=== PATIENT | male | born 1945 | race Caucasian/White ===

== ENCOUNTER 2018-09-18 05:29 | Inpatient (IN) | payer OTHER, BC ==
[2018-09-11 12:51] LABS: HEMATOCRIT 46.1 % (42.0-52.0); HEMOGLOBIN 15.3 gm/dL (14.0-18.0); MCHC 33.2 g/dL (28.0-37.0); MCV 96.4 fL (80.0-100.0); RBC 4.78 mil/uL (4.50-6.00); RDW 13.1 % (10.5-14.5); WBC 8.1 thou/uL (4.0-11.0)
[2018-09-11 13:01] LABS: ALBUMIN 4.3 g/dL (3.4-5.0); CALCIUM 9.4 mg/dL (8.5-10.1); CREATININE 0.8 mg/dL (0.7-1.3); POTASSIUM 4.1 mmol/L (3.5-5.1)
[2018-09-11 13:11] LABS: PROTIME 10.5 Seconds (9.3-11.4)
[2018-09-11 13:45] LABS: URINE BILIRUBIN NEGATIVE (Negative); URINE BLOOD NEGATIVE (Negative); URINE CLARITY CLEAR; URINE COLOR YELLOW; URINE GLUCOSE-RANDOM* NEGATIVE (Negative); URINE KETONES NEGATIVE (Negative); URINE LEUKOCYTES-REFLEX NEGATIVE (Negative); URINE NITRITE-REFLEX NEGATIVE (Negative); URINE PROTEIN (DIPSTICK) NEGATIVE (Negative); URINE UROBILINOGEN 0.2 E.U./dl (0.2-1.0)
[~2018-09-18] VITALS: Ht 172.7 cm; Wt 83.0 kg
--- NOTE | ~2018-09-18 | D ---
[facility] [place] [address] [place] [address] DISCHARGE SUMMARY Name: KRISTY MARTINEZ Room #: 422-P [facility] IN M.R.#: [id number] Admission: 09/18/18 Attend Phys: Alessandro Hernandez MD Discharge: Date of : 49 Report #: [id number] THIS REPORT FOR: //name// CC: Alessandro Ruth DATE OF SERVICE: 09/19/2018 PLANNED DISCHARGE DATE: 09/20/2017 FINAL DIAGNOSIS: End-stage degenerative osteoarthritis, right knee. OPERATIONS AND PROCEDURES: Right total knee arthroplasty. HISTORY OF PRESENT ILLNESS: This active, fit 72-year-old gentleman complains of progressive right knee pain. Clinical exam and x-rays confirmed rather severe end-stage degenerative osteoarthritis. He was elected to go ahead with total knee replacement. HOSPITAL COURSE: The patient was admitted and taken to the Operating Room on 09/18/2018. He underwent right total knee replacement, which he tolerated well. Postoperatively, his course had been largely unremarkable. The dressing was dry. Hemovac output was limited. The drain has been removed. He has advanced from oral IV analgesics to oral analgesics. He is participating with physical therapy and making good progress. He feels sufficiently safe and independent, that he anticipates he will be able to go home with limited family assistance in 1 or 2 days. Therefore, he is requesting plans for discharge on 09/20/2018. I have noted that if he is not yet fully safe and independent, we will need to keep him for one more day, but would anticipate discharge home with some limited family assistance on either 09/20/2018 or 09/21/2018. DISCHARGE MEDICATIONS: Include aspirin 81 mg daily, Flomax 0.4 mg daily, Zocor 40 mg daily, multivitamins once daily, Xarelto 10 mg daily, hydrocodone 10 mg q. 6 hours p.r.n. for pain. He will continue a gentle independent exercise program gradually advancing as comfort allows. He will begin outpatient therapy next week. I have asked him to call me if any problems or questions and we should otherwise see him in my office in 1 week for routine followup and then in 2 weeks for suture removal. By: [id number] Alessandro Hernandez MD /nt
[~2018-09-18 05:29] MED LIST: ASPIR 8181 MG PO; CENTRUM SILVER1 EAC2 PO; FLOMAX0.4 MG PO; LUTEIN20 M1 PO; MAGOX 400400 MG PO; MOBIC15 MG PO; SIMVASTATIN40 MG PO; VITAMIN B-1100 M2 PO; VITAMIN B-12500 MCG PO; VITAMIN E400 UNIT PO; VITAMINC500 PO
[2018-09-18 07:42] VITALS: BP 138/79
[2018-09-18 13:11] VITALS: BP 134/73
--- NOTE | 2018-09-18 13:21 | NUR ---
ASSESSMENT-PT LIVES AT HOME WITH HIS . THEY HAVE A SON AND DIL IN [place]. PT HAS BEEN WALKING ON HIS OWN AND DOES HIS OWN ADLS. PT HAS A 2 WHEELED ROLLER WALKER AT HOME ALREADY. 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 PT SAYS HE WISHES TO USE [facility] FOR HH SERVICES AND WILL HAVE THEM FOR 1 WEEK THEN GO TO [facility]. FOLLOWING TO ASSIST WITH DC PLANNING.
[2018-09-18 13:30] VITALS: BP 115/74
[2018-09-18 14:00] VITALS: BP 81/52
[2018-09-18 14:48] VITALS: BP 116/76
[2018-09-18 19:44] VITALS: BP 123/89
--- NOTE | 2018-09-19 03:31 | NUR ---
Assumed care of pt at 1900. Pt alert and oriented x4. Dressing on rt knee clean and intact. Hemovac drain in place. Pain controlled with prn pain meds. Good urine output. Pt calls appropriately. Will continue to monitor and assist with needs.
[2018-09-19 04:17] VITALS: BP 114/76
[2018-09-19 05:31] LABS: HEMATOCRIT 34.7 % (42.0-52.0); HEMOGLOBIN 11.5 gm/dL (14.0-18.0); MCH 31.9 pg (26.0-34.0); MCV 96.8 fL (80.0-100.0); RBC 3.59 mil/uL (4.50-6.00); RDW 13.3 % (10.5-14.5); WBC 15.5 thou/uL (4.0-11.0)
[2018-09-19 08:00] VITALS: BP 114/76
--- NOTE | 2018-09-19 08:54 | O ---
[facility] [place] [address] [place] [address] OPERATIVE REPORT Name: KRISTY MARTINEZ Room #: 422-P ADM IN M.R.#: [id number] Admission: 09/18/18 Attend Phys: Alessandro Hernandez MD Discharge: Date of : 49 Report #: [id number] THIS REPORT FOR: //name// CC: Alessandro Ruth DATE OF SERVICE: 09/18/2018 PREOPERATIVE DIAGNOSIS: End-stage degenerative osteoarthritis, right knee. POSTOPERATIVE DIAGNOSIS: End-stage degenerative osteoarthritis, right knee. PROCEDURE: Right total knee arthroplasty. SURGEON: Alessandro Hernandez MD INDICATIONS: This 72-year-old gentleman presents with progressive right knee pain. He has tried conservative measure without benefit. Clinical exam and x-rays confirm rather severe degenerative osteoarthritis. We have discussed treatment options and he has elected to go ahead with right total knee arthroplasty. DESCRIPTION OF PROCEDURE: The patient was taken to the operating room where he was placed under general anesthesia. Prophylactic intravenous antibiotics were administered. The right knee and leg were meticulously prepped and draped. A thigh tourniquet was applied and inflated to 300 mmHg. An anterior longitudinal skin incision was made and carried through the medial retinaculum. The patella was reflected laterally. Moderately severe degenerative change in all 3 compartments was noted. The Maier and Nephew knee system was utilized. Intramedullary guides were used on both the femur and the tibia. The femur was cut in 5 degrees of valgus and the tibia cut perpendicular to the long axis of bone. A size 6 femoral component fit nicely and a size 6 tibial component also fit nicely. The patellar surface was resected and a 38-mm patellar button fit nicely with appropriate anchor holes. A trial reduction was performed and the knee seemed best suited for an 11 mm polyethylene insert. This resulted in full knee extension, flexion beyond 130 degrees and good stability with varus and valgus stress. The patellar tracks nicely and seems stable. The trial components were removed. The intramedullary canal was blocked with a bone block on both the femoral and tibial sides. The surfaces were thoroughly irrigated and dried. Methyl methacrylate cement was mixed and injected into the porous surface of the proximal tibia. The Maier and Nephew size 6 Julisa II right tibial base plate was then inserted. This was impacted into position. It seated nicely and appeared to be secure. Excess cement was removed around its margin. A #11 mm polyethylene insert was snapped into place. It seated nicely and appeared to be secure. The press-fit noncemented size 6 cruciate retaining Legion femoral component was impacted on the distal femur. It seated nicely and [facility] [address] [place] [address] OPERATIVE REPORT Name: KRISTY MARTINEZ Room #: 422-P [facility] IN ..#: [id number] Admission: 09/18/18 Attend Phys: Alessandro Hernandez MD Discharge: Date of : 49 Report #: [id number] appeared to be secure. The patellar component was cemented into place using cement and appropriate anchor holes. Excess cement was removed from around its margin. Once the cement had hardened, range of motion, alignment, and stability were once again assessed and felt to be satisfactory. The patellar tracks nicely and seems stable. A single Hemovac was left in the wound, exiting through a separate stab incision. At this point, the tourniquet was deflated after a total tourniquet time of approximately 50 minutes. The wound was copiously irrigated. Good hemostasis was established. The fascia was closed with multiple #1 Vicryl sutures. The subcutaneous tissues were closed with 0 Monocryl. The skin was closed with skin shanique. A sterile dressing was applied. The patient was awakened and returned to recovery room in good condition. <ELECTRONICALLY SIGNED> By: Alessandro Hernandez MD 09/19/18 [id number] Alessandro Hernandez MD /nt
[2018-09-19 10:30] VITALS: BP 123/83
[2018-09-19 19:51] VITALS: BP 133/56
--- NOTE | 2018-09-20 03:15 | NUR ---
PATIENT ALERT AND ORIENTED X4. VERY ANXIOUS AT SHIFT CHANGE, WANTED THIS NURSE TO CALL THE DOCTOR FOR A TEMP OF 99.2. PATIENT WAS INSTRUCTED TO USE HIS SPIROMETER, DRINK WATER AND TAKE TYLENOL. MONITORED THROUGHOUT THE NIGHT. NO RESULTS FROM AM MOM GIVEN. MEDICATED FOR PAIN X2 AT TIME OF NOTE. WILL MONITOR.
[2018-09-20 06:47] LABS: HEMOGLOBIN 10.9 gm/dL (14.0-18.0); MCH 32.2 pg (26.0-34.0); MCHC 33.1 g/dL (28.0-37.0); MCV 97.4 fL (80.0-100.0); RBC 3.38 mil/uL (4.50-6.00); RDW 13.2 % (10.5-14.5)
--- NOTE | 2018-09-20 06:55 | NUR ---
PATIENTS TEMP THIS AM IS 98.8
[2018-09-20 07:50] VITALS: BP 116/75
[2018-09-20 19:29] VITALS: BP 111/59
--- NOTE | 2018-09-20 19:48 | NUR ---
ASSUMED CARE OF PATIENT AT 0715, PATIENT ALERT AND ORIENTED X 4. PATIENT UP WITH ASSIST X 1 WITH WALKER. PATIENT C/O PAIN WITH RIGHT KNEE, PATIENT RECEIVED OXYCODONE X 2 THIS SHIFT. PATIENT WORKED WITH PHYSICAL THERAPY X 2 THIS SHIFT. PATIENT HAS BEEN UP IN THE RECLINER MOST OF THE DAY. PATIENT HAS RIGHT HAND IV IN PLACE, FLUSHED WITH NS AND REMAINS PATENT. PATIENT HAS LIYA DRESSING TO RIGHT KNEE, C/D/I. PATIENT STATES PAIN LEVEL IMPROVE TODAY. WILL CONTINUE MONITOR.
--- NOTE | 2018-09-21 03:27 | NUR ---
PATIENT ALERT AND ORIENTED X4. UP WITH WALKER FROM BED TO CHAIR INDEPENDENTLY. COOPERATIVE WITH CARE. MEDICATED FOR PAIN PRN WITH GOOD RESULTS. DRESSING DRY AND INTACT. NO BM AT TIME OF NOTE. USING ICE PACK FOR COMFORT. RESTING QUIETLY. WILL MONIOR.
[2018-09-21 07:04] LABS: HEMATOCRIT 32.4 % (42.0-52.0); HEMOGLOBIN 10.6 gm/dL (14.0-18.0); MCH 32.1 pg (26.0-34.0); MCHC 32.8 g/dL (28.0-37.0); MCV 97.8 fL (80.0-100.0); RBC 3.31 mil/uL (4.50-6.00); RDW 13.1 % (10.5-14.5); WBC 9.5 thou/uL (4.0-11.0)
[2018-09-21 07:25] VITALS: BP 120/75
--- NOTE | 2018-09-21 11:11 | NUR ---
ASSUMED CARE AT 0700, SHIFT ASSESSMENT DONE, VSS. MEDS GIVEN. REPORTED PAIN, PRN PAIN MED GIVEN. DISCHARGE ORDERS RECEIVED. AWAITING FOR PHYSICAL THERAPHY TO WORK WITH PATIENT. WILL CONTINUE TO ASSESS AND ASSIST WITH ADLs NEEDED.
[2018-09-21 11:21] VITALS: BP 120/75
--- NOTE | 2018-09-21 13:17 | NUR ---
DISCHARGE ORDERS RECEIVED, SCRIPT WAS GIVEN. PERIPHERAL IV WAS TAKEN OUT. PATIENT WAS TRANSPORTED OUT WITH NURSING STAFF.
== END 2018-09-21 13:54 | disposition home or self-care (01) | DRG 470 ==
LOC: TBA 05:29 → 4E 05:29 → PRE 09:52 → 4E 13:52 → SICU 09-19 11:00
PROVIDERS: ADMIT Orthopaedic Surgery
PROC: 0SRC0J9 Replacement of Right Knee Joint with Synthetic Substitute, Cemented, Open Approach (ICD-10-PCS; principal; 2018-09-18)
DX: M17.11 Unilateral primary osteoarthritis, right knee (principal); E78.5 Hyperlipidemia, unspecified; G62.9 Polyneuropathy, unspecified; K59.00 Constipation, unspecified; G25.0 Essential tremor; K58.9 Irritable bowel syndrome, unspecified; N40.0 Benign prostatic hyperplasia without lower urinary tract symptoms; Z79.82 Long term (current) use of aspirin; Z79.899 Other long term (current) drug therapy; Z87.891 Personal history of nicotine dependence
CPT/HCPCS: 10783; 15002; 50010; 50101; 50415; 50954; 51130; 51225; 51412; 53364; 56525; 57095; 62110; 62900; 70005